=== PATIENT | male | born 1955 | race Caucasian/White ===

== ENCOUNTER 2021-09-02 14:33 | Inpatient (IN) ==
[2021-09-02] MEDS ORDERED: Naloxone 0.4 MG/ML INJ IVP PRN (18:12)
[2021-09-02] MEDS ORDERED: Ondansetron 4 MG/2 ML VIAL IVP PRN (18:12)
[2021-09-02] MEDS ORDERED: *HR* Dextrose 50 % in Water (Syg) 50 ML SYRINGE IVP PRN (18:14)
[2021-09-02] MEDS ORDERED: Dextrose Gel 15 GM/37.5 ML TUBE PO PRN ×2 (18:14)
[2021-09-02] MEDS ORDERED: D5% in Water 1,000 ML IVC SCH (18:15)
[2021-09-03] MEDS: Insulin LISPRO 300 UNITS/3 ML VIAL SUBQ SCH ×5 (00:38→23:58)
[2021-09-03] MEDS: *HR* Heparin 5,000 UNIT/ML VIAL SQ SCH ×2 (06:03→17:53)
[2021-09-03 08:02] LABS: Basophils % 0.2 %; Mean Corpuscular Volume 99.5 fL (83.0-100.0); Mean Platelet Volume 11.1 fL (9.4-12.4)
[2021-09-03 08:04] LABS: Eosinophils # 0.1 K/mcL (0.0-0.6); Hematocrit 37.9 % (37.5-50.1); Hemoglobin 12.3 g/dL (12.9-16.9); Immature Granulocytes % 0.2 % (0-4); Immature Platelets 4.7 % (1.1-6.1); Lymphocytes # 1.1 K/mcL (0.6-4.6); Lymphocytes % 19.2 %; Mean Corpuscular HGB Conc 32.5 g/dL (31.6-35.5); Mean Corpuscular Hemoglobin 32.3 pg (28.0-33.3); Monocytes # 0.4 K/mcL (0.0-1.3); Monocytes % 6.9 %; Neutrophils # 3.9 K/mcL (1.6-8.9); Red Blood Count 3.81 M/mcL (4.19-5.50); Segmented Neutrophils % 71.5 %; White Blood Count 5.5 K/mcL (4.3-11.1)
[2021-09-03 08:18] LABS: INR 1.4; Prothrombin Time 15.1 Seconds (9.4-12.1)
[2021-09-03 08:22] LABS: Alanine Aminotransferase 15 Units/L (7-52); Albumin 3.1 g/dL (3.5-5.7); Albumin/Globulin Ratio 1.6 (1.1-2.2); Alkaline Phosphatase 73 Units/L (34-104); Aspartate Amino Transferase 26 Units/L (13-39); BUN/Creatinine Ratio 16 (6-26); Bilirubin,Total 0.9 mg/dL (0.3-1.0); Blood Urea Nitrogen 15 mg/dL (8-23); Calcium 7.9 mg/dL (8.6-10.3); Carbon Dioxide 26 mEq/L (23-29); Chloride 112 mEq/L (98-107); Glucose 92 mg/dL (70-105); Magnesium 1.9 mg/dL (1.6-2.6); Osmolality,Calculated 298 (280-300); Phosphorous 3.3 mg/dL (2.7-4.5); Potassium 3.2 mEq/L (3.5-5.1); Sodium 144 mEq/L (136-145); Total Protein 5.1 g/dL (6.4-8.9); eGFR For African Americans > 60 (> 60); eGFR For Non-African Americans > 60 (> 60)
[2021-09-03 09:49] LABS: Platelet Count 99 K/mcL (140-400)
[2021-09-03] MEDS: Pantoprazole 40 MG VIAL IVP SCH (09:54)
[2021-09-03] MEDS ORDERED: Potassium Chloride 40 MEQ in D5% in 0.45% NACL 1,000 ML IVC SCH (11:15)
[2021-09-04] MEDS: *HR* Heparin 5,000 UNIT/ML VIAL SQ SCH ×2 (05:46→17:50)
[2021-09-04] MEDS: Insulin LISPRO 300 UNITS/3 ML VIAL SUBQ SCH ×3 (05:57→18:02)
[2021-09-04] MEDS: Pantoprazole 40 MG VIAL IVP SCH (07:29)
[2021-09-04 07:31] LABS: BUN/Creatinine Ratio 13 (6-26); Blood Urea Nitrogen 13 mg/dL (8-23); Calcium 8.3 mg/dL (8.6-10.3); Carbon Dioxide 26 mEq/L (23-29); Chloride 110 mEq/L (98-107); Glucose 89 mg/dL (70-105); Osmolality,Calculated 298 (280-300); Phosphorous 2.7 mg/dL (2.7-4.5); Potassium 3.8 mEq/L (3.5-5.1); Sodium 144 mEq/L (136-145); eGFR For African Americans > 60 (> 60); eGFR For Non-African Americans > 60 (> 60)
[2021-09-04] MEDS: D5% in Water 1,000 ML IVC PRN (17:57)
[2021-09-05] MEDS: Insulin LISPRO 300 UNITS/3 ML VIAL SUBQ SCH ×4 (00:38→18:43)
[2021-09-05] MEDS: D5% in Water 1,000 ML IVC PRN (03:44)
[2021-09-05] MEDS: *HR* Heparin 5,000 UNIT/ML VIAL SQ SCH ×2 (06:20→18:46)
[2021-09-05] MEDS ORDERED: D5% in 0.45% NACL 1,000 ML IVC SCH ×2 (07:45→16:40)
[2021-09-05] MEDS: Pantoprazole 40 MG VIAL IVP SCH (08:32)
[2021-09-05] MEDS ORDERED: *HR* Propofol 200 MG/20 ML VIAL IVP ONE (13:16)
[2021-09-05] MEDS ORDERED: Lidocaine -MPF 2% 5 ML VIAL ONE (13:18)
[2021-09-05] MEDS ORDERED: *HR* FentaNYL (PF) 100 MCG/2 ML VIAL ONE (13:18)
[2021-09-05] MEDS ORDERED: *HR* Heparin 5,000 UNIT/ML VIAL ONE (13:36)
[2021-09-05] MEDS ORDERED: Lidocaine 1% 20 ML MDV ONE (13:36)
[2021-09-05] MEDS ORDERED: *HR* Rocuronium Bromide 50 MG/5 ML VIAL ONE (14:26)
[2021-09-05] MEDS ORDERED: EPHEDrine 50 MG/ML VIAL ONE (14:41)
[2021-09-05] MEDS ORDERED: Sugammadex Sodium 200 MG/2 ML VIAL IV ONE (14:44)
[2021-09-05] MEDS ORDERED: Metoclopramide 10 MG/2 ML VIAL IVP PRN (15:30)
[2021-09-05] MEDS ORDERED: Promethazine 6.25 MG in Water for inj. (sterile) 20 ML IVPB PRN (15:30)
[2021-09-05] MEDS ORDERED: *HR* HYDROmorphone (PF) 1 MG/ML SYRINGE ONE (15:34)
[2021-09-05] MEDS: *HR* HYDROmorphone PF 0.5 MG/0.5 ML SYRINGE IVP PRN ×2 (15:35→15:45)
[2021-09-05] MEDS ORDERED: Ondansetron 4 MG/2 ML VIAL IVP PRN (16:40)
[2021-09-05] MEDS ORDERED: Naloxone 0.4 MG/ML INJ IVP PRN (16:40)
[2021-09-05] MEDS ORDERED: *HR* Dextrose 50 % in Water (Syg) 50 ML SYRINGE IVP PRN (16:40)
[2021-09-05] MEDS ORDERED: Dextrose Gel 15 GM/37.5 ML TUBE PO PRN ×2 (16:40)
[2021-09-05] MEDS: 0.9 % Sodium Chloride 1,000 ML IVC SCH (18:40)
[2021-09-05] MEDS: Morphine Sulfate 2 MG/ML SYRINGE IVP PRN (21:11)
[2021-09-06] MEDS: Insulin LISPRO 300 UNITS/3 ML VIAL SUBQ SCH ×4 (02:59→18:15)
[2021-09-06] MEDS ORDERED: Acetaminophen IV 500 MG/50 ML BAG IVPB ONE (05:00)
[2021-09-06] MEDS: 0.9 % Sodium Chloride 1,000 ML IVC SCH ×3 (05:12→18:31)
[2021-09-06] MEDS: *HR* Heparin 5,000 UNIT/ML VIAL SQ SCH ×2 (05:20→18:27)
[2021-09-06] MEDS: Morphine Sulfate 2 MG/ML SYRINGE IVP PRN (08:53)
[2021-09-06] MEDS: Pantoprazole 40 MG VIAL IVP SCH (08:55)
[2021-09-06] MEDS: Albumin Human 5% 12.5 GM/250 ML IV.SOLN IVC SCH ×2 (10:24→18:27)
[2021-09-06] MEDS ORDERED: *HR* FentaNYL (PF) 100 MCG/2 ML VIAL ONE (11:32)
[2021-09-06] MEDS ORDERED: Ondansetron 4 MG/2 ML VIAL IVP PRN (11:35)
[2021-09-06] MEDS ORDERED: *HR* Metoprolol 5 MG/5 ML VIAL IVP PRN (11:35)
[2021-09-06] MEDS ORDERED: Naloxone 0.4 MG/ML INJ IVP PRN (11:35)
[2021-09-06] MEDS ORDERED: *HR* FentaNYL (PF) 100 MCG/2 ML VIAL IVP PRN (11:35)
[2021-09-06] MEDS ORDERED: Nitroglycerin 0.4 MG TAB.SUBL SL PRN (11:35)
[2021-09-06] MEDS ORDERED: Albuterol 2.5 MG/3 ML NEBULIZER IH PRN (11:35)
[2021-09-06] MEDS ORDERED: Ondansetron 4 MG/2 ML VIAL ONE (12:14)
[2021-09-06] MEDS ORDERED: *HR* Propofol 200 MG/20 ML VIAL IVP ONE (12:14)
[2021-09-06] MEDS ORDERED: Acetaminophen IV 1,000 MG/100 ML BAG IVPB SCH (16:00)
[2021-09-06] MEDS ORDERED: Albumin Human 5% 12.5 GM/250 ML IV.SOLN IVC SCH ×2 (18:15→18:45)
[2021-09-07] MEDS: Insulin LISPRO 300 UNITS/3 ML VIAL SUBQ SCH ×4 (00:25→17:49)
[2021-09-07] MEDS: Morphine Sulfate 2 MG/ML SYRINGE IVP PRN ×2 (00:32→12:17)
[2021-09-07 01:01] LABS: Mean Corpuscular Volume 99.4 fL (83.0-100.0)
[2021-09-07 01:03] LABS: Hematocrit 33.5 % (37.5-50.1); Hemoglobin 10.7 g/dL (12.9-16.9); Immature Platelets 6.2 % (1.1-6.1); Mean Corpuscular HGB Conc 31.9 g/dL (31.6-35.5); Mean Corpuscular Hemoglobin 31.8 pg (28.0-33.3); Mean Platelet Volume 11.9 fL (9.4-12.4); Red Blood Count 3.37 M/mcL (4.19-5.50); Red Cell Distribution Width 13.1 % (11.5-14.5); White Blood Count 7.9 K/mcL (4.3-11.1)
[2021-09-07 01:21] LABS: BUN/Creatinine Ratio 19 (6-26); Blood Urea Nitrogen 14 mg/dL (8-23); Calcium 7.9 mg/dL (8.6-10.3); Carbon Dioxide 20 mEq/L (23-29); Chloride 111 mEq/L (98-107); Glucose 98 mg/dL (70-105); Magnesium 1.8 mg/dL (1.6-2.6); Osmolality,Calculated 290 (280-300); Potassium 3.9 mEq/L (3.5-5.1); Sodium 140 mEq/L (136-145); eGFR For African Americans > 60 (> 60); eGFR For Non-African Americans > 60 (> 60)
[2021-09-07] MEDS: 0.9 % Sodium Chloride 1,000 ML IVC SCH ×3 (02:21→18:20)
[2021-09-07] MEDS: *HR* Heparin 5,000 UNIT/ML VIAL SQ SCH ×2 (05:25→18:04)
[2021-09-07] MEDS: Pantoprazole 40 MG VIAL IVP SCH (09:53)
[2021-09-07] MEDS ORDERED: Chloraseptic Spray 177 ML BOTTLE MM PRN (11:41)
[2021-09-08] MEDS: Insulin LISPRO 300 UNITS/3 ML VIAL SUBQ SCH ×6 (01:03→21:23)
[2021-09-08] MEDS: 0.9 % Sodium Chloride 1,000 ML IVC SCH ×3 (02:35→19:23)
[2021-09-08] MEDS: *HR* Heparin 5,000 UNIT/ML VIAL SQ SCH ×2 (05:43→17:20)
[2021-09-08] MEDS: Morphine Sulfate 2 MG/ML SYRINGE IVP PRN ×3 (08:57→16:33)
[2021-09-08] MEDS: Pantoprazole 40 MG VIAL IVP SCH (08:57)
[2021-09-09] MEDS: Insulin LISPRO 300 UNITS/3 ML VIAL SUBQ SCH ×6 (00:20→21:34)
[2021-09-09] MEDS: 0.9 % Sodium Chloride 1,000 ML IVC SCH ×3 (03:37→18:15)
[2021-09-09] MEDS: *HR* Heparin 5,000 UNIT/ML VIAL SQ SCH ×2 (05:26→18:14)
[2021-09-10] MEDS: Insulin LISPRO 300 UNITS/3 ML VIAL SUBQ SCH ×6 (00:22→20:56)
[2021-09-10] MEDS: *HR* Heparin 5,000 UNIT/ML VIAL SQ SCH ×2 (06:39→17:11)
[2021-09-10] MEDS ORDERED: 0.9 % Sodium Chloride 1,000 ML IVC SCH (08:12)
[2021-09-10 12:11] LABS: Hematocrit 34.5 % (37.5-50.1); Hemoglobin 11.4 g/dL (12.9-16.9); Mean Corpuscular Hemoglobin 31.9 pg (28.0-33.3); Mean Corpuscular Volume 96.6 fL (83.0-100.0); Mean Platelet Volume 10.5 fL (9.4-12.4); Platelet Count 133 K/mcL (140-400); Red Blood Count 3.57 M/mcL (4.19-5.50); Red Cell Distribution Width 13.2 % (11.5-14.5); White Blood Count 4.7 K/mcL (4.3-11.1)
[2021-09-10 12:32] LABS: BUN/Creatinine Ratio 21 (6-26); Blood Urea Nitrogen 10 mg/dL (8-23); Calcium 7.7 mg/dL (8.6-10.3); Carbon Dioxide 25 mEq/L (23-29); Chloride 110 mEq/L (98-107); Glucose 127 mg/dL (70-105); Magnesium 1.6 mg/dL (1.6-2.6); Osmolality,Calculated 293 (280-300); Phosphorous 2.1 mg/dL (2.7-4.5); Potassium 3.3 mEq/L (3.5-5.1); Sodium 141 mEq/L (136-145); eGFR For African Americans > 60 (> 60); eGFR For Non-African Americans > 60 (> 60)
[2021-09-10] MEDS ORDERED: Potassium Effervescent 25 MEQ TABLET.EFF GTUBE ONE (18:40)
[2021-09-11] MEDS: Insulin LISPRO 300 UNITS/3 ML VIAL SUBQ SCH ×6 (00:04→18:06)
[2021-09-11 05:34] LABS: Hematocrit 35.2 % (37.5-50.1); Hemoglobin 11.8 g/dL (12.9-16.9); Mean Corpuscular HGB Conc 33.5 g/dL (31.6-35.5); Mean Corpuscular Hemoglobin 32.1 pg (28.0-33.3); Mean Corpuscular Volume 95.7 fL (83.0-100.0); Mean Platelet Volume 10.6 fL (9.4-12.4); Platelet Count 141 K/mcL (140-400); Red Blood Count 3.68 M/mcL (4.19-5.50); Red Cell Distribution Width 13.3 % (11.5-14.5); White Blood Count 5.8 K/mcL (4.3-11.1)
[2021-09-11] MEDS: *HR* Heparin 5,000 UNIT/ML VIAL SQ SCH ×2 (05:44→18:17)
[2021-09-11 05:49] LABS: BUN/Creatinine Ratio 18 (6-26); Blood Urea Nitrogen 10 mg/dL (8-23); Calcium 7.9 mg/dL (8.6-10.3); Carbon Dioxide 24 mEq/L (23-29); Chloride 109 mEq/L (98-107); Glucose 128 mg/dL (70-105); Magnesium 1.6 mg/dL (1.6-2.6); Osmolality,Calculated 291 (280-300); Potassium 3.8 mEq/L (3.5-5.1); Sodium 140 mEq/L (136-145); eGFR For African Americans > 60 (> 60); eGFR For Non-African Americans > 60 (> 60)
[2021-09-12] MEDS: Insulin LISPRO 300 UNITS/3 ML VIAL SUBQ SCH ×4 (01:03→11:34)
[2021-09-12] MEDS: *HR* Heparin 5,000 UNIT/ML VIAL SQ SCH (05:37)
[2021-09-12 06:32] VITALS: TEMP 98
[2021-09-12 11:18] VITALS: BP 119/76; PULSE 102; O2SAT 93
== END 2021-09-12 15:15 | disposition home health service (06) | DRG 356 ==
LOC: 3NENU → SUATTDRO 17:15
PROVIDERS: ADMIT Internal Medicine; ATTEND Internal Medicine
PROC: ENDOEBX (2021-09-06 09:10)
PROC: ENDOEUS (2021-09-06 09:10)

== ENCOUNTER 2021-11-08 08:58 | Observation (INO) ==
[2021-11-08] MEDS ORDERED: Cefepime HCl 2,000 MG in 0.9 % Sodium Chloride 10 ML IVP ONE (09:22)
[2021-11-08] MEDS ORDERED: 0.9 % Sodium Chloride 1,000 ML IVC SCH (09:30)
[2021-11-08 09:43] LABS: Mean Corpuscular Hemoglobin 31.1 pg (28.0-33.3)
[2021-11-08 09:45] LABS: Immature Platelets 3.6 % (1.1-6.1); Mean Corpuscular HGB Conc 33.3 g/dL (31.6-35.5); Mean Corpuscular Volume 93.2 fL (83.0-100.0); Mean Platelet Volume 9.8 fL (9.4-12.4); Red Blood Count 3.22 M/mcL (4.19-5.50); Red Cell Distribution Width 14.8 % (11.5-14.5); White Blood Count 2.5 K/mcL (4.3-11.1)
[2021-11-08 09:49] LABS: Platelet Count 84 K/mcL (140-400)
[2021-11-08 09:54] LABS: Alanine Aminotransferase 37 Units/L (7-52); Albumin 3.4 g/dL (3.5-5.7); Albumin/Globulin Ratio 1.2 (1.1-2.2); Alkaline Phosphatase 171 Units/L (34-104); Aspartate Amino Transferase 16 Units/L (13-39); BUN/Creatinine Ratio 23 (6-26); Bilirubin,Direct 0.4 mg/dL (0.0-0.2); Bilirubin,Indirect 0.7 mg/dL (0.0-1.0); Bilirubin,Total 1.1 mg/dL (0.3-1.0); Blood Urea Nitrogen 17 mg/dL (8-23); Calcium 8.5 mg/dL (8.6-10.3); Carbon Dioxide 23 mEq/L (23-29); Chloride 93 mEq/L (98-107); Globulin 2.8 g/dL (2.4-3.5); Glucose 153 mg/dL (70-105); Lipase 3 Units/L (11-82); Magnesium 1.6 mg/dL (1.6-2.6); Osmolality,Calculated 269 (280-300); Potassium 4.2 mEq/L (3.5-5.1); Sodium 127 mEq/L (136-145); Total Protein 6.2 g/dL (6.4-8.9); Troponin I < 0.03 ng/mL (< 0.04); eGFR For African Americans > 60 (> 60); eGFR For Non-African Americans > 60 (> 60)
[2021-11-08 09:54] LABS: VBG HCO3 24 mEq/L (21-27); VBG PCO2 36 mmHg (41-51); VBG PH 7.44 pH Units (7.32-7.42); VBG PO2 44 mmHg (25-50)
[2021-11-08 09:56] LABS: INR 1.4
[2021-11-08 09:59] LABS: Activated Partial Thrombo Time 33.5 Seconds (26.0-36.0)
[2021-11-08 10:04] LABS: Anisocytosis 1+ (Not Present); Lymphocytes # 0.2 K/mcL (0.6-4.6); Monocytes # 0.5 K/mcL (0.0-1.3); Neutrophils # 1.9 K/mcL (1.6-8.9); Platelet Estimate Decreased (Normal)
[2021-11-08 11:09] LABS: Influenza A PCR Negative (Negative); Influenza B PCR Negative (Negative); Resp. Syncytial Virus PCR Negative (Negative)
[2021-11-08 11:26] LABS: SARS-CoV-2 by PCR (In House) Negative (Negative)
[2021-11-08] MEDS ORDERED: Isovue-370 500 ML BOTTLE IVP ONE (11:42)
[2021-11-08 11:47] LABS: Bacteria,Urine Few per hpf (None-Few); Bilirubin,Urine Negative (Negative); Blood,Urine Negative (Negative); Calcium Oxalate Crystals,Urine Present per hpf; Clarity,Urine Clear (Clear); Color,Urine Yellow (Yellow); Glucose,Urine (UA) Normal (Normal); Hyaline Casts,Urine Few per lpf (None Seen); Ketones,Urine Negative (Negative); Leukocyte Esterase,Urine Negative (Negative); Mucus,Urine Few per lpf (None-Few); Nitrite,Urine Negative (Negative); PH,Urine 5.5 pH Units (5.0-8.0); Protein,Urine 30 mg/dL (Neg-Trace); Specific Gravity,Urine 1.021 (1.010-1.025); Squamous Epithelial Cell,Urine Few per hpf (None-Few); Urobilinogen,Urine Normal (Normal); WBC,Urine 0-3 per hpf (0-3)
[2021-11-08] MEDS ORDERED: Ondansetron 4 MG/2 ML VIAL IVP PRN (12:22)
[2021-11-08] MEDS ORDERED: Naloxone 0.4 MG/ML INJ IVP PRN (12:22)
[2021-11-08] MEDS: 0.9 % Sodium Chloride 1,000 ML IVC SCH ×2 (14:35→21:00)
[2021-11-08] MEDS: *HR* Heparin 5,000 UNIT/ML VIAL SQ SCH (17:28)
[2021-11-08] MEDS: Piperacillin/Tazobactam 3.375 GM in 0.9 % Sodium Chloride Mini Bag 100 ML IVPB SCH ×2 (17:28→23:29)
[2021-11-08] MEDS ORDERED: *HR* HYDROmorphone (PF) 1 MG/ML SYRINGE IVP ONE (19:56)
[2021-11-08] MEDS: Famotidine 20 MG TABLET GTUBE SCH (20:47)
[2021-11-09] MEDS ORDERED: Dextrose 4 GM Chewable Tablets PO PRN ×2 (00:45)
[2021-11-09] MEDS ORDERED: D5% in Water 1,000 ML IVC PRN (00:45)
[2021-11-09] MEDS: *HR* Dextrose 50 % in Water (Syg) 50 ML SYRINGE IVP PRN ×2 (00:58→05:02)
[2021-11-09] MEDS ORDERED: *HR* HYDROmorphone (PF) 1 MG/ML SYRINGE IVP ONE (02:07)
[2021-11-09 03:19] LABS: Basophils % 0.7 %; Mean Corpuscular Hemoglobin 31.7 pg (28.0-33.3); Red Cell Distribution Width 15.1 % (11.5-14.5)
[2021-11-09 03:21] LABS: Eosinophils % 0.7 %; Hematocrit 23.6 % (37.5-50.1); Hemoglobin 7.7 g/dL (12.9-16.9); Immature Granulocytes % 1.4 % (0-4); Immature Platelets 3.3 % (1.1-6.1); Lymphocytes # 0.1 K/mcL (0.6-4.6); Lymphocytes % 4.8 %; Mean Corpuscular HGB Conc 32.6 g/dL (31.6-35.5); Mean Corpuscular Volume 97.1 fL (83.0-100.0); Mean Platelet Volume 10.2 fL (9.4-12.4); Monocytes # 0.4 K/mcL (0.0-1.3); Monocytes % 24.1 %; Red Blood Count 2.43 M/mcL (4.19-5.50); Segmented Neutrophils % 68.3 %; White Blood Count 1.5 K/mcL (4.3-11.1)
[2021-11-09] MEDS: 0.9 % Sodium Chloride 1,000 ML IVC SCH ×3 (03:26→21:30)
[2021-11-09 03:29] LABS: Platelet Count 72 K/mcL (140-400)
[2021-11-09 04:44] LABS: BUN/Creatinine Ratio 26 (6-26); Blood Urea Nitrogen 15 mg/dL (8-23); Calcium 7.9 mg/dL (8.6-10.3); Carbon Dioxide 23 mEq/L (23-29); Chloride 105 mEq/L (98-107); Glucose 97 mg/dL (70-105); Osmolality,Calculated 281 (280-300); Potassium 3.9 mEq/L (3.5-5.1); Sodium 135 mEq/L (136-145); eGFR For African Americans > 60 (> 60); eGFR For Non-African Americans > 60 (> 60)
[2021-11-09] MEDS: *HR* Heparin 5,000 UNIT/ML VIAL SQ SCH ×2 (05:24→17:07)
[2021-11-09] MEDS: Piperacillin/Tazobactam 3.375 GM in 0.9 % Sodium Chloride Mini Bag 100 ML IVPB SCH ×3 (07:53→23:18)
[2021-11-09] MEDS: Famotidine 20 MG TABLET GTUBE SCH ×2 (07:54→21:30)
[2021-11-09] MEDS: Morphine Sulfate 2 MG/ML SYRINGE IVP PRN ×2 (11:20→18:25)
[2021-11-09] MEDS ORDERED: Scopolamine Patch 1.5 MG PATCH.TD72 TD SCH (13:15)
[2021-11-10] MEDS: Morphine Sulfate 2 MG/ML SYRINGE IVP PRN ×4 (00:46→20:49)
[2021-11-10 01:45] LABS: Eosinophils % 0.7 %; Hematocrit 24.1 % (37.5-50.1); Hemoglobin 7.6 g/dL (12.9-16.9); Immature Granulocytes % 0.7 % (0-4); Immature Platelets 2.9 % (1.1-6.1); Lymphocytes # 0.1 K/mcL (0.6-4.6); Lymphocytes % 5.1 %; Mean Corpuscular HGB Conc 31.5 g/dL (31.6-35.5); Mean Corpuscular Hemoglobin 30.8 pg (28.0-33.3); Mean Corpuscular Volume 97.6 fL (83.0-100.0); Mean Platelet Volume 10.2 fL (9.4-12.4); Monocytes % 17.6 %; Red Blood Count 2.47 M/mcL (4.19-5.50); Red Cell Distribution Width 15.2 % (11.5-14.5); Segmented Neutrophils % 75.9 %; White Blood Count 1.4 K/mcL (4.3-11.1)
[2021-11-10 01:48] LABS: Monocytes # 0.3 K/mcL (0.0-1.3); Neutrophils # 1.1 K/mcL (1.6-8.9); Platelet Count 75 K/mcL (140-400)
[2021-11-10 02:04] LABS: BUN/Creatinine Ratio 28 (6-26); Blood Urea Nitrogen 15 mg/dL (8-23); Calcium 7.4 mg/dL (8.6-10.3); Carbon Dioxide 21 mEq/L (23-29); Chloride 109 mEq/L (98-107); Glucose 136 mg/dL (70-105); Osmolality,Calculated 289 (280-300); Potassium 3.6 mEq/L (3.5-5.1); Sodium 138 mEq/L (136-145); eGFR For African Americans > 60 (> 60); eGFR For Non-African Americans > 60 (> 60)
[2021-11-10] MEDS: 0.9 % Sodium Chloride 1,000 ML IVC SCH ×3 (03:32→20:51)
[2021-11-10] MEDS: *HR* Heparin 5,000 UNIT/ML VIAL SQ SCH ×2 (06:05→18:11)
[2021-11-10] MEDS: Piperacillin/Tazobactam 3.375 GM in 0.9 % Sodium Chloride Mini Bag 100 ML IVPB SCH ×2 (07:41→15:53)
[2021-11-10] MEDS: Famotidine 20 MG TABLET GTUBE SCH ×2 (09:58→20:50)
[2021-11-10 14:44] LABS: % Iron Saturation 29 % (20-55); Iron 47 mcg/dL (65-175); Transferrin 115 mg/dL (203-362)
[2021-11-10 15:02] LABS: Ferritin 585 ng/mL (20-250)
[2021-11-11] MEDS: Piperacillin/Tazobactam 3.375 GM in 0.9 % Sodium Chloride Mini Bag 100 ML IVPB SCH ×2 (00:27→07:55)
[2021-11-11] MEDS: 0.9 % Sodium Chloride 1,000 ML IVC SCH (05:15)
[2021-11-11] MEDS: *HR* Heparin 5,000 UNIT/ML VIAL SQ SCH (05:16)
[2021-11-11 05:45] LABS: Basophils % 0.6 %; Eosinophils % 0.6 %; Hematocrit 26.1 % (37.5-50.1); Hemoglobin 8.4 g/dL (12.9-16.9); Immature Granulocytes % 0.6 % (0-4); Immature Platelets 2.2 % (1.1-6.1); Lymphocytes # 0.1 K/mcL (0.6-4.6); Lymphocytes % 5.9 %; Mean Corpuscular HGB Conc 32.2 g/dL (31.6-35.5); Mean Corpuscular Hemoglobin 30.8 pg (28.0-33.3); Mean Corpuscular Volume 95.6 fL (83.0-100.0); Mean Platelet Volume 10.4 fL (9.4-12.4); Monocytes # 0.3 K/mcL (0.0-1.3); Monocytes % 14.7 %; Neutrophils # 1.3 K/mcL (1.6-8.9); Red Blood Count 2.73 M/mcL (4.19-5.50); Red Cell Distribution Width 15.4 % (11.5-14.5); Segmented Neutrophils % 77.6 %; White Blood Count 1.7 K/mcL (4.3-11.1)
[2021-11-11 05:46] LABS: Platelet Count 89 K/mcL (140-400)
[2021-11-11 06:30] LABS: BUN/Creatinine Ratio 21 (6-26); Blood Urea Nitrogen 11 mg/dL (8-23); Calcium 7.4 mg/dL (8.6-10.3); Carbon Dioxide 20 mEq/L (23-29); Chloride 106 mEq/L (98-107); Glucose 153 mg/dL (70-105); Osmolality,Calculated 284 (280-300); Potassium 3.7 mEq/L (3.5-5.1); Sodium 136 mEq/L (136-145); eGFR For African Americans > 60 (> 60); eGFR For Non-African Americans > 60 (> 60)
[2021-11-11] MEDS: Morphine Sulfate 2 MG/ML SYRINGE IVP PRN (07:54)
[2021-11-11] MEDS: Famotidine 20 MG TABLET GTUBE SCH (08:02)
[2021-11-11] MEDS ORDERED: Iron Sucrose Complex 400 MG in 0.9 % Sodium Chloride 250 ML IVPB ONE (10:00)
[2021-11-11] MEDS ORDERED: *HR* OxyCODONE Oral Soln 5 MG/5 ML UD.LIQ GTUBE PRN (10:17)
[2021-11-11 11:55] VITALS: BP 123/82; PULSE 94; TEMP 97.5; O2SAT 96
== END 2021-11-11 14:53 | disposition home health service (06) ==
LOC: EMEROOARM 08:58 → 3ANU 08:58
PROVIDERS: ADMIT Internal Medicine; ATTEND Internal Medicine

== ENCOUNTER 2022-01-02 06:05 | Inpatient (IN) ==
[~2022-01-02 06:05] MED LIST: Famotidine 20 MG/2 ML VIAL IVP ONE; Ringers Solution, Lactated 1,000 ML IVC ONE
[2022-01-02] MEDS ORDERED: CeFAZolin Syr 2,000MG/20 ML 2,000 MG/20 ML SYRINGE IVPB ONE (06:29)
[2022-01-02] MEDS ORDERED: *HR* Propofol 200 MG/20 ML VIAL IVP ONE ×2 (06:54→10:53)
[2022-01-02] MEDS ORDERED: Lidocaine HCL 4 ML Topical Solution (Laryng-O-Jet Kit Sterile Pak) TP ONE (06:54)
[2022-01-02] MEDS ORDERED: Lidocaine -MPF 2% 2 ML VIAL ONE (06:54)
[2022-01-02] MEDS ORDERED: Ondansetron 4 MG/2 ML VIAL ONE (06:54)
[2022-01-02] MEDS ORDERED: *HR* Succinylcholine 200 MG/10 ML VIAL IVP ONE (06:58)
[2022-01-02] MEDS ORDERED: Scopolamine Patch 1.5 MG PATCH.TD72 TD ONE (07:06)
[2022-01-02] MEDS ORDERED: Naloxone 0.4 MG/ML INJ IVP PRN ×2 (07:25→13:30)
[2022-01-02] MEDS ORDERED: Nitroglycerin 0.4 MG TAB.SUBL SL PRN (07:25)
[2022-01-02] MEDS ORDERED: Albuterol 2.5 MG/3 ML NEBULIZER IH PRN (07:25)
[2022-01-02] MEDS ORDERED: *HR* HYDROmorphone PF 0.5 MG/0.5 ML SYRINGE IVP PRN (07:25)
[2022-01-02] MEDS ORDERED: Ondansetron 4 MG/2 ML VIAL IVP PRN ×2 (07:25→13:30)
[2022-01-02] MEDS ORDERED: *HR* Phenylephrine 10 MG/ML VIAL ONE (07:26)
[2022-01-02] MEDS ORDERED: *HR* Rocuronium Bromide 50 MG/5 ML VIAL ONE (07:37)
[2022-01-02] MEDS ORDERED: *HR* FentaNYL (PF) 100 MCG/2 ML VIAL ONE (07:38)
[2022-01-02] MEDS ORDERED: Heparin 1,000 UNITS/500 mL 500 ML ONE (07:39)
[2022-01-02 08:45] LABS: ABG Base Excess -1 mEq/L (-2 to 3); ABG Chloride 102 mEq/L (98-107); ABG Glucose 105 mg/dL (60-95); ABG HCO3 23 mEq/L (21-27); ABG Oxygen Saturation 100 % (95-98); ABG PCO2 37 mmHg (35-45); ABG PH 7.41 pH Units (7.32-7.45); ABG PO2 529 mmHg (85-104); ABG TCO2 24 mEq/L (20-26)
[2022-01-02] MEDS ORDERED: Ketamine HCL *QUVA* 50mg (1mL) SYRINGE ONE (08:58)
[2022-01-02] MEDS ORDERED: PHYTONADIONE IVPB ONE (10:15)
[2022-01-02] MEDS ORDERED: SODIUM CHLORIDE 0.9% IVPB ONE (10:15)
[2022-01-02] MEDS ORDERED: *HR* HYDROMORPHONE 2 MG/ML VIAL ONE (10:28)
[2022-01-02] MEDS ORDERED: Albumin Human 5% 25.0 GM/500 ML IV.SOLN ONE (10:56)
[2022-01-02 10:59] LABS: ABG Base Excess -3 mEq/L (-2 to 3); ABG Chloride 103 mEq/L (98-107); ABG Glucose 154 mg/dL (60-95); ABG HCO3 22 mEq/L (21-27); ABG Ionized Calcium 1.15 mmol/L (1.15-1.35); ABG Oxygen Saturation 96 % (95-98); ABG PCO2 37 mmHg (35-45); ABG PH 7.38 pH Units (7.32-7.45); ABG PO2 80 mmHg (85-104); ABG TCO2 23 mEq/L (20-26)
[2022-01-02] MEDS ORDERED: Albumin Human 5% 12.5 GM/250 ML IV.SOLN ONE (12:10)
[2022-01-02] MEDS ORDERED: Sugammadex Sodium 200 MG/2 ML VIAL IV ONE (12:27)
[2022-01-02 12:39] LABS: ABG Base Excess -2 mEq/L (-2 to 3); ABG Chloride 103 mEq/L (98-107); ABG Glucose 187 mg/dL (60-95); ABG HCO3 23 mEq/L (21-27); ABG Ionized Calcium 1.16 mmol/L (1.15-1.35); ABG Oxygen Saturation 97 % (95-98); ABG PCO2 38 mmHg (35-45); ABG PH 7.38 pH Units (7.32-7.45); ABG PO2 96 mmHg (85-104); ABG TCO2 24 mEq/L (20-26)
[2022-01-02] MEDS ORDERED: *HR* Vasopressin 20 UNIT/ML VIAL ONE (12:43)
[2022-01-02] MEDS ORDERED: EPHEDrine 50 MG/ML VIAL ONE (12:57)
[2022-01-02] MEDS: 0.9 % Sodium Chloride 1,000 ML IVC SCH ×2 (13:51→20:21)
[2022-01-02] MEDS: Scopolamine Patch 1.5 MG PATCH.TD72 TD SCH (13:53)
[2022-01-02 14:01] LABS: Hematocrit 27.4 % (37.5-50.1); Immature Platelets 3.2 % (1.1-6.1); Mean Corpuscular HGB Conc 32.8 g/dL (31.6-35.5); Mean Corpuscular Hemoglobin 34.4 pg (28.0-33.3); Mean Corpuscular Volume 104.6 fL (83.0-100.0); Red Blood Count 2.62 M/mcL (4.19-5.50)
[2022-01-02] MEDS: *HR* HYDROmorphone PCA *PREMADE* 20 MG/1MG/ML (20mL) PCA VIAL IVC SCH (14:19)
[2022-01-02 14:38] LABS: BUN/Creatinine Ratio 33 (6-26); Blood Urea Nitrogen 21 mg/dL (8-23); Calcium 7.8 mg/dL (8.6-10.3); Carbon Dioxide 18 mEq/L (23-29); Chloride 104 mEq/L (98-107); Glucose 158 mg/dL (70-105); Magnesium 1.5 mg/dL (1.6-2.6); Osmolality,Calculated 286 (280-300); Phosphorous 3.6 mg/dL (2.7-4.5); Potassium 4.1 mEq/L (3.5-5.1); Sodium 135 mEq/L (136-145); eGFR For African Americans > 60 (> 60); eGFR For Non-African Americans > 60 (> 60)
[2022-01-02] MEDS: Albumin Human 5% 12.5 GM/250 ML IV.SOLN IVC SCH ×2 (17:02→21:00)
[2022-01-02] MEDS: ceFAZolin 1,000 MG in 0.9 % Sodium Chloride 10 ML IVP SCH (17:03)
[2022-01-02] MEDS: Ipratropium/Albuterol Neb 3 ML IH SCH ×2 (20:05→23:52)
[2022-01-02 20:23] LABS: Hematocrit 30.5 % (37.5-50.1); Mean Corpuscular HGB Conc 32.8 g/dL (31.6-35.5); Mean Corpuscular Volume 103.7 fL (83.0-100.0); Red Blood Count 2.94 M/mcL (4.19-5.50)
[2022-01-02 20:25] LABS: Immature Platelets 2.8 % (1.1-6.1); Mean Platelet Volume 9.9 fL (9.4-12.4); Red Cell Distribution Width 18.9 % (11.5-14.5); White Blood Count 6.6 K/mcL (4.3-11.1)
[2022-01-03] MEDS: ceFAZolin 1,000 MG in 0.9 % Sodium Chloride 10 ML IVP SCH ×3 (00:05→15:45)
[2022-01-03 03:21] LABS: Hematocrit 30.6 % (37.5-50.1); Hemoglobin 9.8 g/dL (12.9-16.9); Immature Platelets 2.9 % (1.1-6.1); Mean Corpuscular Hemoglobin 34.4 pg (28.0-33.3); Mean Corpuscular Volume 107.4 fL (83.0-100.0); Mean Platelet Volume 9.6 fL (9.4-12.4); Red Blood Count 2.85 M/mcL (4.19-5.50); Red Cell Distribution Width 18.9 % (11.5-14.5); White Blood Count 8.5 K/mcL (4.3-11.1)
[2022-01-03 03:26] LABS: VBG Ionized Calcium 1.12 mmol/L (1.15-1.35)
[2022-01-03 03:41] LABS: BUN/Creatinine Ratio 31 (6-26); Blood Urea Nitrogen 22 mg/dL (8-23); Calcium 8.5 mg/dL (8.6-10.3); Carbon Dioxide 19 mEq/L (23-29); Chloride 104 mEq/L (98-107); Glucose 194 mg/dL (70-105); Magnesium 2.2 mg/dL (1.6-2.6); Osmolality,Calculated 293 (280-300); Phosphorous 3.3 mg/dL (2.7-4.5); Potassium 3.8 mEq/L (3.5-5.1); Sodium 137 mEq/L (136-145); eGFR For African Americans > 60 (> 60); eGFR For Non-African Americans > 60 (> 60)
[2022-01-03] MEDS: 0.9 % Sodium Chloride 1,000 ML IVC SCH ×3 (03:49→19:35)
[2022-01-03] MEDS: Ipratropium/Albuterol Neb 3 ML IH SCH ×6 (03:49→23:22)
[2022-01-03] MEDS ORDERED: Ipratropium/Albuterol Neb 3 ML ONE (07:58)
[2022-01-03] MEDS: Pantoprazole 40 MG VIAL IVP SCH (08:14)
[2022-01-03] MEDS: *HR* HYDROmorphone (PF) 1 MG/ML SYRINGE IVP PRN ×2 (09:43→17:36)
[2022-01-03] MEDS ORDERED: Ringers Solution, Lactated 500 ML IVC ONE (13:36)
[2022-01-04 04:05] LABS: Hematocrit 26.6 % (37.5-50.1); Hemoglobin 8.4 g/dL (12.9-16.9); Immature Platelets 2.4 % (1.1-6.1); Mean Corpuscular HGB Conc 31.6 g/dL (31.6-35.5); Mean Corpuscular Volume 107.7 fL (83.0-100.0); Mean Platelet Volume 9.7 fL (9.4-12.4); Red Blood Count 2.47 M/mcL (4.19-5.50); Red Cell Distribution Width 19.5 % (11.5-14.5); White Blood Count 6.8 K/mcL (4.3-11.1)
[2022-01-04] MEDS: Ipratropium/Albuterol Neb 3 ML IH SCH ×2 (04:15→07:35)
[2022-01-04 04:23] LABS: BUN/Creatinine Ratio 46 (6-26); Blood Urea Nitrogen 26 mg/dL (8-23); Calcium 8.1 mg/dL (8.6-10.3); Carbon Dioxide 25 mEq/L (23-29); Chloride 109 mEq/L (98-107); Glucose 139 mg/dL (70-105); Magnesium 1.8 mg/dL (1.6-2.6); Osmolality,Calculated 295 (280-300); Phosphorous 1.8 mg/dL (2.7-4.5); Sodium 139 mEq/L (136-145); eGFR For African Americans > 60 (> 60); eGFR For Non-African Americans > 60 (> 60)
[2022-01-04] MEDS: 0.9 % Sodium Chloride 1,000 ML IVC SCH ×3 (04:32→21:19)
[2022-01-04] MEDS: Pantoprazole 40 MG VIAL IVP SCH (07:50)
[2022-01-04] MEDS: *HR* HYDROmorphone (PF) 1 MG/ML SYRINGE IVP PRN (10:19)
[2022-01-04] MEDS ORDERED: *HR* LORazepam 2 MG/ML VIAL IVP PRN (11:03)
[2022-01-04] MEDS: Levalbuterol Neb 1.25 MG/3 ML IH SCH ×3 (11:06→20:47)
[2022-01-04 19:25] LABS: Magnesium 2.9 mg/dL (1.6-2.6); Potassium 3.8 mEq/L (3.5-5.1)
[2022-01-05 03:56] LABS: Hematocrit 24.8 % (37.5-50.1)
[2022-01-05 03:58] LABS: Hemoglobin 7.8 g/dL (12.9-16.9); Immature Platelets 2.3 % (1.1-6.1); Mean Corpuscular HGB Conc 31.5 g/dL (31.6-35.5); Mean Corpuscular Hemoglobin 33.9 pg (28.0-33.3); Mean Corpuscular Volume 107.8 fL (83.0-100.0); Red Blood Count 2.3 M/mcL (4.19-5.50); Red Cell Distribution Width 18.7 % (11.5-14.5); White Blood Count 3.8 K/mcL (4.3-11.1)
[2022-01-05 04:15] LABS: BUN/Creatinine Ratio 51 (6-26); Blood Urea Nitrogen 20 mg/dL (8-23); Calcium 7.8 mg/dL (8.6-10.3); Carbon Dioxide 23 mEq/L (23-29); Chloride 109 mEq/L (98-107); Glucose 82 mg/dL (70-105); Osmolality,Calculated 290 (280-300); Potassium 3.7 mEq/L (3.5-5.1); Sodium 139 mEq/L (136-145); eGFR For African Americans > 60 (> 60); eGFR For Non-African Americans > 60 (> 60)
[2022-01-05] MEDS: Levalbuterol Neb 1.25 MG/3 ML IH SCH ×7 (04:40→23:24)
[2022-01-05] MEDS: 0.9 % Sodium Chloride 1,000 ML IVC SCH ×2 (05:48→20:20)
[2022-01-05] MEDS: Pantoprazole 40 MG VIAL IVP SCH (08:25)
[2022-01-05] MEDS ORDERED: Calcium Gluconate 1gm/50mL 1 GM/50 ML BAG IVPB ONE (08:38)
[2022-01-05] MEDS ORDERED: Furosemide 20 MG/2 ML VIAL IVP ONE (12:53)
[2022-01-05] MEDS: Ampicillin/Sulbactam 3,000 MG in 0.9 % Sodium Chloride Mini Bag 100 ML IVPB SCH ×2 (12:56→16:24)
[2022-01-05] MEDS ORDERED: *HR* Dextrose 50 % in Water (Syg) 50 ML SYRINGE IVP ONE (13:07)
[2022-01-05] MEDS: *HR* HYDROmorphone PCA *PREMADE* 20 MG/1MG/ML (20mL) PCA VIAL IVC SCH (13:41)
[2022-01-05] MEDS: Scopolamine Patch 1.5 MG PATCH.TD72 TD SCH (13:46)
[2022-01-05] MEDS ORDERED: *HR* Dextrose 50 % in Water (Syg) 50 ML SYRINGE IVP PRN (13:51)
[2022-01-05] MEDS ORDERED: Amiodarone Premix 150 MG/100 ML BAG IVPB ONE ×2 (20:53→20:57)
[2022-01-05] MEDS ORDERED: Amiodarone Premix 360 MG/200 ML BAG IVC ONE (20:57)
[2022-01-06] MEDS: Ampicillin/Sulbactam 3,000 MG in 0.9 % Sodium Chloride Mini Bag 100 ML IVPB SCH ×4 (00:11→17:38)
[2022-01-06] MEDS: Amiodarone Premix 360 MG/200 ML BAG IVC SCH ×2 (02:50→15:05)
[2022-01-06] MEDS: Levalbuterol Neb 1.25 MG/3 ML IH SCH ×6 (03:29→23:19)
[2022-01-06 04:11] LABS: White Blood Count 3.6 K/mcL (4.3-11.1)
[2022-01-06 04:13] LABS: Hematocrit 23.7 % (37.5-50.1); Hemoglobin 7.6 g/dL (12.9-16.9); Immature Platelets 2.5 % (1.1-6.1); Mean Corpuscular HGB Conc 32.1 g/dL (31.6-35.5); Mean Corpuscular Hemoglobin 34.4 pg (28.0-33.3); Mean Corpuscular Volume 107.2 fL (83.0-100.0); Mean Platelet Volume 10.3 fL (9.4-12.4); Red Blood Count 2.21 M/mcL (4.19-5.50); Red Cell Distribution Width 18.6 % (11.5-14.5)
[2022-01-06 04:28] LABS: BUN/Creatinine Ratio 40 (6-26); Blood Urea Nitrogen 21 mg/dL (8-23); Calcium 7.8 mg/dL (8.6-10.3); Carbon Dioxide 23 mEq/L (23-29); Chloride 107 mEq/L (98-107); Glucose 159 mg/dL (70-105); Magnesium 1.8 mg/dL (1.6-2.6); Osmolality,Calculated 292 (280-300); Phosphorous 2.7 mg/dL (2.7-4.5); Potassium 3.7 mEq/L (3.5-5.1); Sodium 138 mEq/L (136-145); eGFR For African Americans > 60 (> 60); eGFR For Non-African Americans > 60 (> 60)
[2022-01-06] MEDS ORDERED: Furosemide 20 MG/2 ML VIAL IVP ONE (07:44)
[2022-01-06] MEDS: Pantoprazole 40 MG VIAL IVP SCH (08:47)
[2022-01-06] MEDS: Doxycycline 100 MG in 0.9 % Sodium Chloride Mini Bag 100 ML IVPB SCH ×2 (10:44→22:14)
[2022-01-06] MEDS: Acetylcysteine 10% 2 ML INHSOL IH SCH ×4 (11:46→23:20)
[2022-01-06] MEDS: Dexmedetomidine HCl 400 MCG/100 ML MLS IVC SCH (12:07)
[2022-01-06] MEDS ORDERED: *HR* Succinylcholine 200 MG/10 ML VIAL IVP ONE (12:08)
[2022-01-06] MEDS ORDERED: *HR* Etomidate 20 MG/10 ML AMPUL IVP ONE (12:08)
[2022-01-06] MEDS ORDERED: Albumin Human 5% 12.5 GM/250 ML IV.SOLN IVPB ONE (15:52)
[2022-01-06] MEDS: 0.9 % Sodium Chloride 1,000 ML IVC SCH (16:23)
[2022-01-07] MEDS: Ampicillin/Sulbactam 3,000 MG in 0.9 % Sodium Chloride Mini Bag 100 ML IVPB SCH ×4 (00:25→21:46)
[2022-01-07] MEDS: Amiodarone Premix 360 MG/200 ML BAG IVC SCH ×2 (00:50→16:37)
[2022-01-07] MEDS: Dexmedetomidine HCl 400 MCG/100 ML MLS IVC SCH ×3 (04:34→22:21)
[2022-01-07] MEDS: Acetylcysteine 10% 2 ML INHSOL IH SCH ×4 (04:40→15:55)
[2022-01-07] MEDS: Levalbuterol Neb 1.25 MG/3 ML IH SCH ×5 (04:40→20:24)
[2022-01-07 06:03] LABS: Hematocrit 23.2 % (37.5-50.1); Hemoglobin 7.4 g/dL (12.9-16.9); Immature Platelets 3.5 % (1.1-6.1); Mean Corpuscular HGB Conc 31.9 g/dL (31.6-35.5); Mean Corpuscular Hemoglobin 34.1 pg (28.0-33.3); Mean Corpuscular Volume 106.9 fL (83.0-100.0); Mean Platelet Volume 10.8 fL (9.4-12.4); Red Blood Count 2.17 M/mcL (4.19-5.50); Red Cell Distribution Width 18.9 % (11.5-14.5); White Blood Count 2.8 K/mcL (4.3-11.1)
[2022-01-07 06:33] LABS: BUN/Creatinine Ratio 38 (6-26); Blood Urea Nitrogen 21 mg/dL (8-23); Carbon Dioxide 27 mEq/L (23-29); Chloride 110 mEq/L (98-107); Glucose 151 mg/dL (70-105); Magnesium 1.8 mg/dL (1.6-2.6); Osmolality,Calculated 300 (280-300); Phosphorous 2.2 mg/dL (2.7-4.5); Potassium 3.7 mEq/L (3.5-5.1); Sodium 142 mEq/L (136-145); eGFR For African Americans > 60 (> 60); eGFR For Non-African Americans > 60 (> 60)
[2022-01-07] MEDS: Pantoprazole 40 MG VIAL IVP SCH (08:38)
[2022-01-07] MEDS: Doxycycline 100 MG in 0.9 % Sodium Chloride Mini Bag 100 ML IVPB SCH ×2 (08:39→22:24)
[2022-01-07] MEDS ORDERED: Furosemide 40 MG/4 ML VIAL IVP ONE (09:34)
[2022-01-07] MEDS ORDERED: Amiodarone Premix 150 MG/100 ML BAG IVPB ONE (13:16)
[2022-01-07] MEDS ORDERED: Artificial Tears SOLN 15 ML BOTTLE BOTH EYES PRN (13:21)
[2022-01-07] MEDS: FentaNYL (PF) 1,000 MCG/100 ML IV.SOLN IVC SCH ×2 (13:24→20:19)
[2022-01-07] MEDS ORDERED: Amiodarone Premix 360 MG/200 ML BAG IVC SCH (13:30)
[2022-01-07] MEDS: 0.9 % Sodium Chloride 1,000 ML IVC SCH ×2 (13:32→16:36)
[2022-01-07] MEDS ORDERED: Levalbuterol Neb 1.25 MG/3 ML ONE (13:41)
[2022-01-07] MEDS ORDERED: Levalbuterol Neb 1.25 MG/3 ML IH STA (13:42)
[2022-01-07] MEDS: Norepinephrine 4 MG/254 ML IV.SOLN IVC SCH ×3 (14:00→22:13)
[2022-01-07] MEDS ORDERED: Albumin Human 5% 12.5 GM/250 ML IV.SOLN ONE (14:27)
[2022-01-07] MEDS ORDERED: *HR* Vasopressin 20 UNIT/ML VIAL ONE (14:31)
[2022-01-07] MEDS ORDERED: *HR* Rocuronium Bromide 50 MG/5 ML VIAL ONE (14:33)
[2022-01-07] MEDS ORDERED: *HR* Midazolam HCl 5 MG/5 ML VIAL IVP ONE (14:33)
[2022-01-07] MEDS: Albumin Human 5% 12.5 GM/250 ML IV.SOLN IVC SCH ×2 (15:14→16:05)
[2022-01-07] MEDS ORDERED: Albumin Human 5% 25.0 GM/500 ML IV.SOLN ONE (16:02)
[2022-01-07 16:11] LABS: ABG Base Excess 0 mEq/L (-2 to 3); ABG HCO3 25 mEq/L (21-27); ABG Oxygen Saturation 94 % (95-98); ABG PCO2 42 mmHg (35-45); ABG PH 7.39 pH Units (7.32-7.45); ABG PO2 71 mmHg (85-104); ABG TCO2 26 mEq/L (20-26); Blood Gas Modality ASSIST CONTROL; Blood Gas VT 450 cc
[2022-01-07] MEDS ORDERED: Albumin Human 5% 12.5 GM/250 ML IV.SOLN IVC SCH (16:15)
[2022-01-07] MEDS: Chlorhexidine Rinse 15 ML MOUTHWASH MM SCH ×3 (16:36→22:19)
[2022-01-07] MEDS: Artificial Tears SOLN 15 ML BOTTLE BOTH EYES SCH ×2 (16:36→22:05)
[2022-01-07 18:11] LABS: ABG Base Excess 0 mEq/L (-2 to 3); ABG HCO3 25 mEq/L (21-27); ABG Oxygen Saturation 82 % (95-98); ABG PCO2 43 mmHg (35-45); ABG PH 7.37 pH Units (7.32-7.45); ABG PO2 47 mmHg (85-104); ABG TCO2 27 mEq/L (20-26); Blood Gas VT 400 cc
[2022-01-07] MEDS: Budesonide/Formoterol 160/4.5 1 PUFF INH IH SCH (20:25)
[2022-01-07] MEDS: *HR* HYDROmorphone PCA *PREMADE* 20 MG/1MG/ML (20mL) PCA VIAL IVC SCH (23:23)
[2022-01-08] MEDS: Artificial Tears SOLN 15 ML BOTTLE BOTH EYES SCH ×6 (00:07→20:56)
[2022-01-08] MEDS: Levalbuterol Neb 1.25 MG/3 ML IH SCH ×7 (00:12→23:16)
[2022-01-08] MEDS: 0.9 % Sodium Chloride 1,000 ML IVC SCH ×3 (00:32→20:30)
[2022-01-08] MEDS: Ampicillin/Sulbactam 3,000 MG in 0.9 % Sodium Chloride Mini Bag 100 ML IVPB SCH ×3 (00:39→14:37)
[2022-01-08] MEDS: FentaNYL (PF) 1,000 MCG/100 ML IV.SOLN IVC SCH ×3 (03:02→20:49)
[2022-01-08] MEDS: Dexmedetomidine HCl 400 MCG/100 ML MLS IVC SCH ×3 (04:09→17:10)
[2022-01-08 04:41] LABS: ABG Base Excess 1 mEq/L (-2 to 3); ABG HCO3 25 mEq/L (21-27); ABG Oxygen Saturation 100 % (95-98); ABG PCO2 37 mmHg (35-45); ABG PH 7.44 pH Units (7.32-7.45); ABG PO2 289 mmHg (85-104); ABG TCO2 26 mEq/L (20-26); Blood Gas Modality ASSIST CONTROL; Blood Gas VT 400 cc
[2022-01-08 05:13] LABS: Hematocrit 21.3 % (37.5-50.1); Mean Corpuscular Volume 108.1 fL (83.0-100.0); Red Blood Count 1.97 M/mcL (4.19-5.50); Red Cell Distribution Width 19.2 % (11.5-14.5)
[2022-01-08 05:15] LABS: Hemoglobin 6.7 g/dL (12.9-16.9); Immature Platelets 4.9 % (1.1-6.1); Mean Corpuscular HGB Conc 31.5 g/dL (31.6-35.5); Mean Platelet Volume 10.8 fL (9.4-12.4); White Blood Count 2.9 K/mcL (4.3-11.1)
[2022-01-08 05:32] LABS: BUN/Creatinine Ratio 32 (6-26); Blood Urea Nitrogen 21 mg/dL (8-23); Calcium 7.9 mg/dL (8.6-10.3); Carbon Dioxide 25 mEq/L (23-29); Chloride 111 mEq/L (98-107); Glucose 145 mg/dL (70-105); Magnesium 1.9 mg/dL (1.6-2.6); Osmolality,Calculated 302 (280-300); Potassium 3.6 mEq/L (3.5-5.1); Sodium 143 mEq/L (136-145); eGFR For African Americans > 60 (> 60); eGFR For Non-African Americans > 60 (> 60)
[2022-01-08] MEDS: Norepinephrine 4 MG/254 ML IV.SOLN IVC SCH (05:51)
[2022-01-08] MEDS: Budesonide/Formoterol 160/4.5 1 PUFF INH IH SCH ×2 (07:25→19:35)
[2022-01-08] MEDS: Chlorhexidine Rinse 15 ML MOUTHWASH MM SCH ×4 (08:11→22:33)
[2022-01-08] MEDS: Pantoprazole 40 MG VIAL IVP SCH (08:11)
[2022-01-08] MEDS: Amiodarone Premix 360 MG/200 ML BAG IVC SCH ×2 (09:39→22:28)
[2022-01-08] MEDS: Doxycycline 100 MG in 0.9 % Sodium Chloride Mini Bag 100 ML IVPB SCH ×2 (09:58→22:33)
[2022-01-08] MEDS ORDERED: 0.9 % Sodium Chloride 250 ML ONE (10:03)
[2022-01-08] MEDS: Fluconazole 200 MG/100 ML 100 MG/50 ML BAG IVPB SCH (13:15)
[2022-01-09] MEDS: Artificial Tears SOLN 15 ML BOTTLE BOTH EYES SCH ×7 (01:13→23:05)
[2022-01-09] MEDS: Piperacillin/Tazobactam 3.375 GM in 0.9 % Sodium Chloride Mini Bag 100 ML IVPB SCH ×4 (01:15→23:05)
[2022-01-09] MEDS: Levalbuterol Neb 1.25 MG/3 ML IH SCH ×6 (03:22→23:12)
[2022-01-09 04:13] LABS: Hematocrit 26.4 % (37.5-50.1)
[2022-01-09 04:15] LABS: Hemoglobin 8.4 g/dL (12.9-16.9); Immature Platelets 5.4 % (1.1-6.1); Mean Corpuscular HGB Conc 31.8 g/dL (31.6-35.5); Mean Corpuscular Hemoglobin 33.2 pg (28.0-33.3); Mean Corpuscular Volume 104.3 fL (83.0-100.0); Mean Platelet Volume 10.4 fL (9.4-12.4); Red Blood Count 2.53 M/mcL (4.19-5.50)
[2022-01-09 04:21] LABS: ABG Base Excess 0 mEq/L (-2 to 3); ABG HCO3 24 mEq/L (21-27); ABG Oxygen Saturation 100 % (95-98); ABG PCO2 35 mmHg (35-45); ABG PH 7.44 pH Units (7.32-7.45); ABG PO2 177 mmHg (85-104); ABG TCO2 25 mEq/L (20-26); Blood Gas Modality ASSIST CONTROL; Blood Gas VT 400 cc
[2022-01-09 04:29] LABS: BUN/Creatinine Ratio 38 (6-26); Blood Urea Nitrogen 20 mg/dL (8-23); Calcium 7.8 mg/dL (8.6-10.3); Carbon Dioxide 24 mEq/L (23-29); Chloride 112 mEq/L (98-107); Glucose 102 mg/dL (70-105); Magnesium 1.8 mg/dL (1.6-2.6); Osmolality,Calculated 299 (280-300); Phosphorous 2.9 mg/dL (2.7-4.5); Potassium 3.6 mEq/L (3.5-5.1); Sodium 143 mEq/L (136-145); eGFR For African Americans > 60 (> 60); eGFR For Non-African Americans > 60 (> 60)
[2022-01-09] MEDS: FentaNYL (PF) 1,000 MCG/100 ML IV.SOLN IVC SCH ×2 (06:28→16:39)
[2022-01-09] MEDS: 0.9 % Sodium Chloride 1,000 ML IVC SCH ×2 (06:32→16:39)
[2022-01-09] MEDS: Budesonide/Formoterol 160/4.5 1 PUFF INH IH SCH ×2 (07:05→20:07)
[2022-01-09] MEDS: Pantoprazole 40 MG VIAL IVP SCH (08:00)
[2022-01-09] MEDS: Chlorhexidine Rinse 15 ML MOUTHWASH MM SCH ×2 (08:00→19:50)
[2022-01-09] MEDS: Fluconazole 200 MG/100 ML 100 MG/50 ML BAG IVPB SCH (08:00)
[2022-01-09] MEDS: Doxycycline 100 MG in 0.9 % Sodium Chloride Mini Bag 100 ML IVPB SCH ×2 (10:58→22:15)
[2022-01-09] MEDS: Norepinephrine 4 MG/254 ML IV.SOLN IVC SCH ×2 (11:10→22:14)
[2022-01-09] MEDS: Dexmedetomidine HCl 400 MCG/100 ML MLS IVC SCH ×2 (11:11→22:18)
[2022-01-09] MEDS: Amiodarone Premix 360 MG/200 ML BAG IVC SCH (11:11)
[2022-01-10] MEDS: FentaNYL (PF) 1,000 MCG/100 ML IV.SOLN IVC SCH ×4 (00:07→20:28)
[2022-01-10] MEDS: Amiodarone Premix 360 MG/200 ML BAG IVC SCH ×2 (00:09→11:46)
[2022-01-10] MEDS: 0.9 % Sodium Chloride 1,000 ML IVC SCH ×3 (02:35→23:26)
[2022-01-10] MEDS: Artificial Tears SOLN 15 ML BOTTLE BOTH EYES SCH ×6 (03:09→23:52)
[2022-01-10 04:03] LABS: Hematocrit 27.4 % (37.5-50.1); Hemoglobin 8.6 g/dL (12.9-16.9); Mean Corpuscular HGB Conc 31.4 g/dL (31.6-35.5); Mean Corpuscular Hemoglobin 33.2 pg (28.0-33.3); Mean Corpuscular Volume 105.8 fL (83.0-100.0); Mean Platelet Volume 11.9 fL (9.4-12.4); Red Blood Count 2.59 M/mcL (4.19-5.50); Red Cell Distribution Width 20.8 % (11.5-14.5)
[2022-01-10 04:05] LABS: Platelet Count 62 K/mcL (140-400); White Blood Count 11.5 K/mcL (4.3-11.1)
[2022-01-10] MEDS: Levalbuterol Neb 1.25 MG/3 ML IH SCH ×6 (04:06→23:07)
[2022-01-10 04:22] LABS: BUN/Creatinine Ratio 33 (6-26); Blood Urea Nitrogen 17 mg/dL (8-23); Calcium 7.7 mg/dL (8.6-10.3); Carbon Dioxide 23 mEq/L (23-29); Chloride 111 mEq/L (98-107); Glucose 140 mg/dL (70-105); Magnesium 1.7 mg/dL (1.6-2.6); Osmolality,Calculated 296 (280-300); Phosphorous 3.3 mg/dL (2.7-4.5); Sodium 141 mEq/L (136-145); eGFR For African Americans > 60 (> 60); eGFR For Non-African Americans > 60 (> 60)
[2022-01-10 04:23] LABS: VBG Ionized Calcium 1.16 mmol/L (1.15-1.35)
[2022-01-10 04:26] LABS: ABG Base Excess -3 mEq/L (-2 to 3); ABG HCO3 23 mEq/L (21-27); ABG Oxygen Saturation 98 % (95-98); ABG PCO2 42 mmHg (35-45); ABG PH 7.34 pH Units (7.32-7.45); ABG PO2 103 mmHg (85-104); ABG TCO2 24 mEq/L (20-26); Blood Gas VT 400 cc
[2022-01-10] MEDS: Norepinephrine 4 MG/254 ML IV.SOLN IVC SCH ×2 (06:31→17:53)
[2022-01-10] MEDS: Budesonide/Formoterol 160/4.5 1 PUFF INH IH SCH ×2 (07:14→20:31)
[2022-01-10] MEDS: Pantoprazole 40 MG VIAL IVP SCH (08:09)
[2022-01-10] MEDS: Chlorhexidine Rinse 15 ML MOUTHWASH MM SCH ×2 (08:09→19:47)
[2022-01-10] MEDS: Piperacillin/Tazobactam 3.375 GM in 0.9 % Sodium Chloride Mini Bag 100 ML IVPB SCH ×3 (08:10→23:24)
[2022-01-10] MEDS: Fluconazole 200 MG/100 ML 100 MG/50 ML BAG IVPB SCH (08:11)
[2022-01-10] MEDS: Doxycycline 100 MG in 0.9 % Sodium Chloride Mini Bag 100 ML IVPB SCH ×2 (09:15→20:56)
[2022-01-11] MEDS ORDERED: Furosemide 40 MG/4 ML VIAL IVP ONE (00:27)
[2022-01-11] MEDS: Amiodarone Premix 360 MG/200 ML BAG IVC SCH ×2 (00:35→13:00)
[2022-01-11] MEDS: Norepinephrine 4 MG/254 ML IV.SOLN IVC SCH ×3 (03:03→21:14)
[2022-01-11] MEDS: FentaNYL (PF) 1,000 MCG/100 ML IV.SOLN IVC SCH ×3 (03:03→18:50)
[2022-01-11] MEDS: Artificial Tears SOLN 15 ML BOTTLE BOTH EYES SCH ×6 (03:04→23:06)
[2022-01-11 03:14] LABS: Hemoglobin 8.8 g/dL (12.9-16.9); Mean Corpuscular Hemoglobin 33.1 pg (28.0-33.3); Red Blood Count 2.66 M/mcL (4.19-5.50)
[2022-01-11 03:15] LABS: VBG Ionized Calcium 1.12 mmol/L (1.15-1.35)
[2022-01-11 03:16] LABS: Hematocrit 28.1 % (37.5-50.1); Immature Platelets 8.3 % (1.1-6.1); Mean Corpuscular HGB Conc 31.3 g/dL (31.6-35.5); Mean Corpuscular Volume 105.6 fL (83.0-100.0); Mean Platelet Volume 10.8 fL (9.4-12.4); Red Cell Distribution Width 20.4 % (11.5-14.5); White Blood Count 8.9 K/mcL (4.3-11.1)
[2022-01-11 03:33] LABS: BUN/Creatinine Ratio 29 (6-26); Blood Urea Nitrogen 16 mg/dL (8-23); Calcium 7.7 mg/dL (8.6-10.3); Carbon Dioxide 25 mEq/L (23-29); Chloride 111 mEq/L (98-107); Glucose 165 mg/dL (70-105); Magnesium 1.7 mg/dL (1.6-2.6); Osmolality,Calculated 295 (280-300); Phosphorous 2.9 mg/dL (2.7-4.5); Potassium 3.7 mEq/L (3.5-5.1); Sodium 140 mEq/L (136-145); eGFR For African Americans > 60 (> 60); eGFR For Non-African Americans > 60 (> 60)
[2022-01-11] MEDS: Levalbuterol Neb 1.25 MG/3 ML IH SCH ×6 (03:44→23:01)
[2022-01-11 04:08] LABS: ABG Base Excess -1 mEq/L (-2 to 3); ABG HCO3 24 mEq/L (21-27); ABG Oxygen Saturation 96 % (95-98); ABG PCO2 43 mmHg (35-45); ABG PH 7.36 pH Units (7.32-7.45); ABG PO2 84 mmHg (85-104); ABG TCO2 26 mEq/L (20-26); Blood Gas VT 400 cc
[2022-01-11] MEDS: Pantoprazole 40 MG VIAL IVP SCH (07:35)
[2022-01-11] MEDS: Chlorhexidine Rinse 15 ML MOUTHWASH MM SCH ×2 (07:35→21:03)
[2022-01-11] MEDS: Piperacillin/Tazobactam 3.375 GM in 0.9 % Sodium Chloride Mini Bag 100 ML IVPB SCH ×3 (07:37→23:07)
[2022-01-11] MEDS: Fluconazole 200 MG/100 ML 100 MG/50 ML BAG IVPB SCH (07:52)
[2022-01-11] MEDS: Budesonide/Formoterol 160/4.5 1 PUFF INH IH SCH ×2 (07:57→20:08)
[2022-01-11] MEDS: Doxycycline 100 MG in 0.9 % Sodium Chloride Mini Bag 100 ML IVPB SCH ×2 (09:20→21:02)
[2022-01-11] MEDS: MethylPREDNISolone 40 MG/ML VIAL IVP SCH ×3 (09:20→23:06)
[2022-01-11] MEDS: 0.9 % Sodium Chloride 1,000 ML IVC SCH ×2 (10:00→19:19)
[2022-01-11 16:37] LABS: Magnesium 1.8 mg/dL (1.6-2.6); Potassium 4.2 mEq/L (3.5-5.1)
[2022-01-12] MEDS: FentaNYL (PF) 1,000 MCG/100 ML IV.SOLN IVC SCH ×4 (03:18→23:11)
[2022-01-12] MEDS: Artificial Tears SOLN 15 ML BOTTLE BOTH EYES SCH ×6 (03:19→23:12)
[2022-01-12 03:40] LABS: Hemoglobin 8.9 g/dL (12.9-16.9); Mean Corpuscular Volume 105.2 fL (83.0-100.0)
[2022-01-12 03:42] LABS: Hematocrit 28.2 % (37.5-50.1); Immature Platelets 10.8 % (1.1-6.1); Mean Corpuscular HGB Conc 31.6 g/dL (31.6-35.5); Mean Corpuscular Hemoglobin 33.2 pg (28.0-33.3); Red Blood Count 2.68 M/mcL (4.19-5.50); Red Cell Distribution Width 19.5 % (11.5-14.5)
[2022-01-12] MEDS: Levalbuterol Neb 1.25 MG/3 ML IH SCH ×6 (03:56→23:10)
[2022-01-12 03:57] LABS: BUN/Creatinine Ratio 42 (6-26); Blood Urea Nitrogen 20 mg/dL (8-23); Calcium 7.9 mg/dL (8.6-10.3); Carbon Dioxide 27 mEq/L (23-29); Chloride 111 mEq/L (98-107); Glucose 217 mg/dL (70-105); Magnesium 1.6 mg/dL (1.6-2.6); Osmolality,Calculated 303 (280-300); Phosphorous 2.6 mg/dL (2.7-4.5); Potassium 3.7 mEq/L (3.5-5.1); Sodium 142 mEq/L (136-145); eGFR For African Americans > 60 (> 60); eGFR For Non-African Americans > 60 (> 60)
[2022-01-12 03:58] LABS: VBG Ionized Calcium 1.19 mmol/L (1.15-1.35)
[2022-01-12 04:21] LABS: ABG Base Excess 0 mEq/L (-2 to 3); ABG HCO3 25 mEq/L (21-27); ABG Oxygen Saturation 97 % (95-98); ABG PCO2 45 mmHg (35-45); ABG PH 7.36 pH Units (7.32-7.45); ABG PO2 94 mmHg (85-104); ABG TCO2 27 mEq/L (20-26); Blood Gas VT 400 cc
[2022-01-12] MEDS: 0.9 % Sodium Chloride 1,000 ML IVC SCH ×3 (05:12→23:20)
[2022-01-12] MEDS: Budesonide/Formoterol 160/4.5 1 PUFF INH IH SCH ×2 (07:39→19:53)
[2022-01-12] MEDS: Piperacillin/Tazobactam 3.375 GM in 0.9 % Sodium Chloride Mini Bag 100 ML IVPB SCH ×3 (08:13→23:12)
[2022-01-12] MEDS: Pantoprazole 40 MG VIAL IVP SCH (08:14)
[2022-01-12] MEDS: Chlorhexidine Rinse 15 ML MOUTHWASH MM SCH ×2 (08:14→19:45)
[2022-01-12] MEDS: MethylPREDNISolone 40 MG/ML VIAL IVP SCH ×3 (08:14→23:11)
[2022-01-12] MEDS: Norepinephrine 4 MG/254 ML IV.SOLN IVC SCH ×2 (08:15→15:09)
[2022-01-12] MEDS: Fluconazole 200 MG/100 ML 100 MG/50 ML BAG IVPB SCH (08:42)
[2022-01-12] MEDS: Doxycycline 100 MG in 0.9 % Sodium Chloride Mini Bag 100 ML IVPB SCH ×2 (10:07→21:28)
[2022-01-13 03:19] LABS: Hematocrit 27.3 % (37.5-50.1)
[2022-01-13 03:21] LABS: Hemoglobin 8.3 g/dL (12.9-16.9); Immature Platelets 12.6 % (1.1-6.1); Mean Corpuscular HGB Conc 30.4 g/dL (31.6-35.5); Mean Corpuscular Hemoglobin 32.5 pg (28.0-33.3); Mean Corpuscular Volume 107.1 fL (83.0-100.0); Mean Platelet Volume 12.4 fL (9.4-12.4); Red Blood Count 2.55 M/mcL (4.19-5.50); Red Cell Distribution Width 18.9 % (11.5-14.5); White Blood Count 3.5 K/mcL (4.3-11.1)
[2022-01-13 03:23] LABS: VBG Ionized Calcium 1.22 mmol/L (1.15-1.35)
[2022-01-13] MEDS: Levalbuterol Neb 1.25 MG/3 ML IH SCH ×5 (03:35→19:57)
[2022-01-13 03:47] LABS: BUN/Creatinine Ratio 45 (6-26); Blood Urea Nitrogen 23 mg/dL (8-23); Calcium 7.9 mg/dL (8.6-10.3); Carbon Dioxide 25 mEq/L (23-29); Chloride 113 mEq/L (98-107); Glucose 220 mg/dL (70-105); Magnesium 1.7 mg/dL (1.6-2.6); Osmolality,Calculated 308 (280-300); Phosphorous 2.3 mg/dL (2.7-4.5); Potassium 3.9 mEq/L (3.5-5.1); Sodium 144 mEq/L (136-145); eGFR For African Americans > 60 (> 60); eGFR For Non-African Americans > 60 (> 60)
[2022-01-13 03:55] LABS: ABG Base Excess -1 mEq/L (-2 to 3); ABG HCO3 26 mEq/L (21-27); ABG Oxygen Saturation 98 % (95-98); ABG PCO2 50 mmHg (35-45); ABG PH 7.32 pH Units (7.32-7.45); ABG PO2 111 mmHg (85-104); ABG TCO2 27 mEq/L (20-26); Blood Gas VT 400 cc
[2022-01-13] MEDS: Artificial Tears SOLN 15 ML BOTTLE BOTH EYES SCH ×6 (04:31→23:59)
[2022-01-13] MEDS: FentaNYL (PF) 1,000 MCG/100 ML IV.SOLN IVC SCH ×3 (06:27→21:47)
[2022-01-13] MEDS: Budesonide/Formoterol 160/4.5 1 PUFF INH IH SCH ×2 (07:52→19:57)
[2022-01-13] MEDS: MethylPREDNISolone 40 MG/ML VIAL IVP SCH ×2 (07:58→16:11)
[2022-01-13] MEDS: Chlorhexidine Rinse 15 ML MOUTHWASH MM SCH ×2 (07:59→19:46)
[2022-01-13] MEDS: Pantoprazole 40 MG VIAL IVP SCH (07:59)
[2022-01-13] MEDS: Piperacillin/Tazobactam 3.375 GM in 0.9 % Sodium Chloride Mini Bag 100 ML IVPB SCH ×3 (07:59→23:59)
[2022-01-13] MEDS: Norepinephrine 4 MG/254 ML IV.SOLN IVC SCH ×2 (08:00→20:35)
[2022-01-13] MEDS: Fluconazole 200 MG/100 ML 100 MG/50 ML BAG IVPB SCH (08:47)
[2022-01-13] MEDS ORDERED: Dextrose 4 GM Chewable Tablets PO PRN ×2 (08:53)
[2022-01-13] MEDS ORDERED: D5% in Water 1,000 ML IVC PRN (08:53)
[2022-01-13] MEDS ORDERED: *HR* Dextrose 50 % in Water (Syg) 50 ML SYRINGE IVP PRN (08:53)
[2022-01-13] MEDS ORDERED: Furosemide 20 MG/2 ML VIAL IVP ONE (08:55)
[2022-01-13] MEDS: 0.9 % Sodium Chloride 1,000 ML IVC SCH ×2 (10:04→21:48)
[2022-01-13] MEDS ORDERED: Amiodarone Premix 360 MG/200 ML BAG IVC SCH (12:00)
[2022-01-13] MEDS: Insulin LISPRO 300 UNITS/3 ML VIAL SUBQ SCH ×2 (12:50→17:21)
[2022-01-14] MEDS: Levalbuterol Neb 1.25 MG/3 ML IH SCH ×7 (00:24→23:24)
[2022-01-14] MEDS: Artificial Tears SOLN 15 ML BOTTLE BOTH EYES SCH ×6 (03:14→23:31)
[2022-01-14 03:24] LABS: Red Cell Distribution Width 18.9 % (11.5-14.5)
[2022-01-14 03:26] LABS: Hematocrit 27.4 % (37.5-50.1); Hemoglobin 8.5 g/dL (12.9-16.9); Immature Platelets 13.4 % (1.1-6.1); Mean Corpuscular Hemoglobin 33.3 pg (28.0-33.3); Mean Corpuscular Volume 107.5 fL (83.0-100.0); Mean Platelet Volume 13.8 fL (9.4-12.4); Red Blood Count 2.55 M/mcL (4.19-5.50); White Blood Count 9.2 K/mcL (4.3-11.1)
[2022-01-14 03:43] LABS: BUN/Creatinine Ratio 54 (6-26); Blood Urea Nitrogen 29 mg/dL (8-23); Calcium 7.5 mg/dL (8.6-10.3); Carbon Dioxide 28 mEq/L (23-29); Chloride 113 mEq/L (98-107); Glucose 276 mg/dL (70-105); Magnesium 1.9 mg/dL (1.6-2.6); Osmolality,Calculated 316 (280-300); Phosphorous 2.2 mg/dL (2.7-4.5); Potassium 3.7 mEq/L (3.5-5.1); Sodium 145 mEq/L (136-145); eGFR For African Americans > 60 (> 60); eGFR For Non-African Americans > 60 (> 60)
[2022-01-14 04:54] LABS: ABG Base Excess 2 mEq/L (-2 to 3); ABG HCO3 28 mEq/L (21-27); ABG Oxygen Saturation 98 % (95-98); ABG PCO2 48 mmHg (35-45); ABG PH 7.37 pH Units (7.32-7.45); ABG PO2 107 mmHg (85-104); ABG TCO2 29 mEq/L (20-26); Blood Gas Modality AF; Blood Gas VT 450 cc
[2022-01-14] MEDS: FentaNYL (PF) 1,000 MCG/100 ML IV.SOLN IVC SCH ×2 (05:23→14:02)
[2022-01-14] MEDS: Insulin LISPRO 300 UNITS/3 ML VIAL SUBQ SCH ×5 (05:26→23:31)
[2022-01-14] MEDS: Norepinephrine 4 MG/254 ML IV.SOLN IVC SCH ×2 (06:35→10:59)
[2022-01-14] MEDS: Budesonide/Formoterol 160/4.5 1 PUFF INH IH SCH ×2 (07:30→20:19)
[2022-01-14] MEDS: MethylPREDNISolone 40 MG/ML VIAL IVP SCH ×4 (07:32→23:30)
[2022-01-14] MEDS: Piperacillin/Tazobactam 3.375 GM in 0.9 % Sodium Chloride Mini Bag 100 ML IVPB SCH (07:32)
[2022-01-14] MEDS: Pantoprazole 40 MG VIAL IVP SCH (07:33)
[2022-01-14] MEDS: Chlorhexidine Rinse 15 ML MOUTHWASH MM SCH ×2 (07:33→20:35)
[2022-01-14] MEDS: *HR* Amiodarone 200 MG TABLET GTUBE SCH (09:08)
[2022-01-14] MEDS: Fluconazole 100 MG/50 ML 100 MG/50 ML BAG IVPB SCH (10:15)
[2022-01-14] MEDS: 0.9 % Sodium Chloride 1,000 ML IVC SCH ×2 (10:32→20:35)
[2022-01-14] MEDS: MetroNIDAZOLE 500 MG/100 ML 500 MG/100 ML BAG IVPB SCH ×3 (12:09→23:30)
[2022-01-14] MEDS: Cefepime HCl 2,000 MG in 0.9 % Sodium Chloride 20 ML IVP SCH ×2 (15:51→23:30)
[2022-01-14] MEDS ORDERED: Amiodarone Premix 360 MG/200 ML BAG IVC ONE (18:39)
[2022-01-14] MEDS: Amiodarone Premix 360 MG/200 ML BAG IVC SCH (18:40)
[2022-01-14] MEDS ORDERED: 0.9 % Sodium Chloride 500 ML ONE (19:48)
[2022-01-15] MEDS: FentaNYL (PF) 1,000 MCG/100 ML IV.SOLN IVC SCH ×3 (00:29→23:38)
[2022-01-15] MEDS: Artificial Tears SOLN 15 ML BOTTLE BOTH EYES SCH ×6 (03:26→23:36)
[2022-01-15 03:55] LABS: Red Blood Count 2.47 M/mcL (4.19-5.50)
[2022-01-15 03:57] LABS: Hematocrit 26.7 % (37.5-50.1); Hemoglobin 8.3 g/dL (12.9-16.9); Immature Platelets 17.5 % (1.1-6.1); Mean Corpuscular HGB Conc 31.1 g/dL (31.6-35.5); Mean Corpuscular Hemoglobin 33.6 pg (28.0-33.3); Mean Corpuscular Volume 108.1 fL (83.0-100.0); Red Cell Distribution Width 18.9 % (11.5-14.5); White Blood Count 12.7 K/mcL (4.3-11.1)
[2022-01-15] MEDS: Levalbuterol Neb 1.25 MG/3 ML IH SCH ×6 (04:00→23:02)
[2022-01-15 04:02] LABS: Platelet Count 21 K/mcL (140-400)
[2022-01-15 04:11] LABS: BUN/Creatinine Ratio 53 (6-26); Blood Urea Nitrogen 31 mg/dL (8-23); Calcium 7.4 mg/dL (8.6-10.3); Carbon Dioxide 29 mEq/L (23-29); Chloride 112 mEq/L (98-107); Glucose 244 mg/dL (70-105); Osmolality,Calculated 315 (280-300); Phosphorous 2.2 mg/dL (2.7-4.5); Potassium 4.5 mEq/L (3.5-5.1); Sodium 145 mEq/L (136-145); eGFR For African Americans > 60 (> 60); eGFR For Non-African Americans > 60 (> 60)
[2022-01-15 04:27] LABS: ABG Base Excess 3 mEq/L (-2 to 3); ABG HCO3 28 mEq/L (21-27); ABG Oxygen Saturation 97 % (95-98); ABG PCO2 44 mmHg (35-45); ABG PH 7.41 pH Units (7.32-7.45); ABG PO2 90 mmHg (85-104); ABG TCO2 29 mEq/L (20-26); Blood Gas Modality AF; Blood Gas VT 450 cc
[2022-01-15] MEDS: Amiodarone Premix 360 MG/200 ML BAG IVC SCH ×2 (05:20→16:11)
[2022-01-15] MEDS: MetroNIDAZOLE 500 MG/100 ML 500 MG/100 ML BAG IVPB SCH ×4 (05:20→23:36)
[2022-01-15] MEDS: Insulin LISPRO 300 UNITS/3 ML VIAL SUBQ SCH ×4 (05:24→23:37)
[2022-01-15] MEDS: Norepinephrine 4 MG/254 ML IV.SOLN IVC SCH ×3 (06:49→12:10)
[2022-01-15] MEDS: MethylPREDNISolone 40 MG/ML VIAL IVP SCH ×3 (07:01→23:35)
[2022-01-15] MEDS: Cefepime HCl 2,000 MG in 0.9 % Sodium Chloride 20 ML IVP SCH ×3 (07:01→23:35)
[2022-01-15] MEDS: Chlorhexidine Rinse 15 ML MOUTHWASH MM SCH ×2 (07:01→19:29)
[2022-01-15] MEDS: Pantoprazole 40 MG VIAL IVP SCH (07:02)
[2022-01-15] MEDS: Budesonide/Formoterol 160/4.5 1 PUFF INH IH SCH ×2 (07:11→20:14)
[2022-01-15] MEDS ORDERED: Furosemide 40 MG/4 ML VIAL IVP ONE (07:43)
[2022-01-15] MEDS: *HR* Amiodarone 200 MG TABLET GTUBE SCH (08:00)
[2022-01-15] MEDS ORDERED: Amiodarone Premix 150 MG/100 ML BAG IVPB ONE (09:01)
[2022-01-15] MEDS: Fluconazole 100 MG/50 ML 100 MG/50 ML BAG IVPB SCH (09:07)
[2022-01-15] MEDS: *HR* LORazepam 2 MG/ML VIAL IVP PRN (11:06)
[2022-01-15] MEDS: Metoclopramide 10 MG/2 ML VIAL IVP SCH ×3 (11:07→23:36)
[2022-01-15] MEDS: Albumin Human 5% 12.5 GM/250 ML IV.SOLN IVC SCH ×2 (12:15→13:45)
[2022-01-15] MEDS: Phenylephrine 100 MG in 0.9 % Sodium Chloride 250 ML IVC SCH ×2 (12:21→20:34)
[2022-01-15] MEDS ORDERED: Albumin Human 5% 25.0 GM/500 ML IV.SOLN ONE (12:53)
[2022-01-16] MEDS: Artificial Tears SOLN 15 ML BOTTLE BOTH EYES SCH ×6 (03:05→23:13)
[2022-01-16] MEDS: Levalbuterol Neb 1.25 MG/3 ML IH SCH ×6 (03:29→23:17)
[2022-01-16 04:12] LABS: ABG Base Excess 3 mEq/L (-2 to 3); ABG HCO3 30 mEq/L (21-27); ABG Oxygen Saturation 97 % (95-98); ABG PCO2 56 mmHg (35-45); ABG PH 7.34 pH Units (7.32-7.45); ABG PO2 99 mmHg (85-104); ABG TCO2 32 mEq/L (20-26); Blood Gas Modality ASSIST CONTROL; Blood Gas VT 450 cc
[2022-01-16] MEDS: Phenylephrine 100 MG in 0.9 % Sodium Chloride 250 ML IVC SCH ×3 (04:12→19:37)
[2022-01-16 04:15] LABS: Hematocrit 27.4 % (37.5-50.1); Hemoglobin 8.2 g/dL (12.9-16.9); Immature Platelets 25.6 % (1.1-6.1); Mean Corpuscular HGB Conc 29.9 g/dL (31.6-35.5); Mean Corpuscular Hemoglobin 32.4 pg (28.0-33.3); Mean Corpuscular Volume 108.3 fL (83.0-100.0); Red Blood Count 2.53 M/mcL (4.19-5.50); White Blood Count 12.7 K/mcL (4.3-11.1)
[2022-01-16 04:27] LABS: BUN/Creatinine Ratio 56 (6-26); Blood Urea Nitrogen 40 mg/dL (8-23); Calcium 7.5 mg/dL (8.6-10.3); Carbon Dioxide 30 mEq/L (23-29); Chloride 112 mEq/L (98-107); Glucose 194 mg/dL (70-105); Magnesium 1.8 mg/dL (1.6-2.6); Osmolality,Calculated 317 (280-300); Phosphorous 2.6 mg/dL (2.7-4.5); Potassium 4.5 mEq/L (3.5-5.1); Sodium 146 mEq/L (136-145); eGFR For African Americans > 60 (> 60); eGFR For Non-African Americans > 60 (> 60)
[2022-01-16 04:28] LABS: Platelet Count 14 K/mcL (140-400)
[2022-01-16] MEDS ORDERED: 0.9 % Sodium Chloride 250 ML ONE (04:54)
[2022-01-16] MEDS: MetroNIDAZOLE 500 MG/100 ML 500 MG/100 ML BAG IVPB SCH ×4 (05:38→23:11)
[2022-01-16] MEDS: Metoclopramide 10 MG/2 ML VIAL IVP SCH ×4 (05:38→23:13)
[2022-01-16] MEDS: Insulin LISPRO 300 UNITS/3 ML VIAL SUBQ SCH ×4 (05:39→23:21)
[2022-01-16] MEDS: Chlorhexidine Rinse 15 ML MOUTHWASH MM SCH ×2 (07:08→21:50)
[2022-01-16] MEDS: MethylPREDNISolone 40 MG/ML VIAL IVP SCH ×3 (07:08→23:12)
[2022-01-16] MEDS: Cefepime HCl 2,000 MG in 0.9 % Sodium Chloride 20 ML IVP SCH ×3 (07:08→23:13)
[2022-01-16] MEDS: Pantoprazole 40 MG VIAL IVP SCH (07:08)
[2022-01-16] MEDS: Budesonide/Formoterol 160/4.5 1 PUFF INH IH SCH ×2 (07:10→20:04)
[2022-01-16] MEDS: *HR* LORazepam 2 MG/ML VIAL IVP PRN (07:30)
[2022-01-16] MEDS: Amiodarone Premix 360 MG/200 ML BAG IVC SCH ×2 (09:38→19:38)
[2022-01-16] MEDS: Fluconazole 100 MG/50 ML 100 MG/50 ML BAG IVPB SCH (09:46)
[2022-01-16] MEDS: Norepinephrine 4 MG/254 ML IV.SOLN IVC SCH ×3 (09:51→21:50)
[2022-01-16] MEDS ORDERED: 0.9 % Sodium Chloride 1,000 ML ONE (10:31)
[2022-01-16] MEDS: FentaNYL (PF) 1,000 MCG/100 ML IV.SOLN IVC SCH (17:12)
[2022-01-16] MEDS ORDERED: Insulin DETEMIR 100 UNIT/ML X5UNITS SUBQ SCH (21:00)
[2022-01-17] MEDS: Phenylephrine 100 MG in 0.9 % Sodium Chloride 250 ML IVC SCH ×3 (01:43→15:02)
[2022-01-17] MEDS: Levalbuterol Neb 1.25 MG/3 ML IH SCH ×4 (03:27→15:35)
[2022-01-17] MEDS: Artificial Tears SOLN 15 ML BOTTLE BOTH EYES SCH ×4 (03:31→16:15)
[2022-01-17 04:15] LABS: Mean Corpuscular HGB Conc 29.4 g/dL (31.6-35.5)
[2022-01-17 04:15] LABS: ABG Base Excess -1 mEq/L (-2 to 3); ABG HCO3 28 mEq/L (21-27); ABG Oxygen Saturation 92 % (95-98); ABG PCO2 67 mmHg (35-45); ABG PH 7.22 pH Units (7.32-7.45); ABG PO2 76 mmHg (85-104); ABG TCO2 30 mEq/L (20-26); Blood Gas VT 400 cc
[2022-01-17 04:18] LABS: Basophils % 0.1 %; Hematocrit 29.3 % (37.5-50.1); Hemoglobin 8.6 g/dL (12.9-16.9); Immature Granulocytes % 29.6 % (0-4); Immature Platelets 24.9 % (1.1-6.1); Lymphocytes # 0.4 K/mcL (0.6-4.6); Lymphocytes % 1.9 %; Mean Corpuscular Hemoglobin 33.1 pg (28.0-33.3); Mean Corpuscular Volume 112.7 fL (83.0-100.0); Monocytes # 1.6 K/mcL (0.0-1.3); Monocytes % 7.8 %; Neutrophils # 12.2 K/mcL (1.6-8.9); Nucleated Red Blood Cells 0.8 /100 WBC (0); Red Cell Distribution Width 18.9 % (11.5-14.5); Segmented Neutrophils % 60.6 %; White Blood Count 20.2 K/mcL (4.3-11.1)
[2022-01-17 04:43] LABS: BUN/Creatinine Ratio 52 (6-26); Blood Urea Nitrogen 58 mg/dL (8-23); Calcium 7.2 mg/dL (8.6-10.3); Carbon Dioxide 25 mEq/L (23-29); Chloride 114 mEq/L (98-107); Glucose 185 mg/dL (70-105); Osmolality,Calculated 321 (280-300); Potassium 5.4 mEq/L (3.5-5.1); Sodium 145 mEq/L (136-145); eGFR For African Americans > 60 (> 60); eGFR For Non-African Americans > 60 (> 60)
[2022-01-17 04:47] LABS: Platelet Count 14 K/mcL (140-400)
[2022-01-17 04:48] LABS: Basophilic Stippling 1+ (Not Present); Platelet Estimate Marked Decrease (Normal); Polychromasia 1+ (Not Present)
[2022-01-17] MEDS: MetroNIDAZOLE 500 MG/100 ML 500 MG/100 ML BAG IVPB SCH ×3 (04:53→18:21)
[2022-01-17] MEDS: Metoclopramide 10 MG/2 ML VIAL IVP SCH ×3 (04:54→18:21)
[2022-01-17] MEDS: Insulin LISPRO 300 UNITS/3 ML VIAL SUBQ SCH ×3 (04:55→18:21)
[2022-01-17] MEDS ORDERED: Ringers Solution, Lactated 1,000 ML ONE (05:33)
[2022-01-17] MEDS ORDERED: 0.9 % Sodium Chloride 250 ML ONE ×2 (05:34→09:14)
[2022-01-17] MEDS ORDERED: Ringers Solution, Lactated 1,000 ML IVC ONE (05:48)
[2022-01-17] MEDS: Amiodarone Premix 360 MG/200 ML BAG IVC SCH (05:54)
[2022-01-17] MEDS: FentaNYL (PF) 1,000 MCG/100 ML IV.SOLN IVC SCH (06:57)
[2022-01-17] MEDS: Norepinephrine 4 MG/254 ML IV.SOLN IVC SCH ×2 (07:23→07:53)
[2022-01-17] MEDS: Budesonide/Formoterol 160/4.5 1 PUFF INH IH SCH (07:44)
[2022-01-17] MEDS: MethylPREDNISolone 40 MG/ML VIAL IVP SCH ×2 (08:52→16:16)
[2022-01-17] MEDS: Cefepime HCl 2,000 MG in 0.9 % Sodium Chloride 20 ML IVP SCH ×2 (08:52→16:16)
[2022-01-17] MEDS: Pantoprazole 40 MG VIAL IVP SCH (08:52)
[2022-01-17] MEDS: Fluconazole 100 MG/50 ML 100 MG/50 ML BAG IVPB SCH (08:53)
[2022-01-17] MEDS: Chlorhexidine Rinse 15 ML MOUTHWASH MM SCH (08:53)
[2022-01-17 12:10] VITALS: TEMP 97.5
[2022-01-17 14:08] VITALS: BP 80/68; PULSE 52; O2SAT 93
[2022-01-17] MEDS ORDERED: Glycopyrrolate 0.2 MG/ML VIAL IVP PRN (15:02)
[2022-01-17] MEDS: *HR* LORazepam 2 MG/ML VIAL IVP PRN ×2 (15:31→15:55)
[2022-01-17] MEDS: *HR* FentaNYL (PF) 100 MCG/2 ML VIAL IVP PRN ×2 (15:31→15:56)
[2022-01-17] MEDS ORDERED: Atropine 1% Opth Drops 100 DROP/5 ML BOTTLE SL PRN (15:38)
[2022-01-17] MEDS ORDERED: Scopolamine Patch 1.5 MG PATCH.TD72 TD SCH (15:45)
[2022-01-17] MEDS ORDERED: Atropine Sulfate 1% 40 DROP/2 ML BOTTLE SL PRN (16:00)
[2022-01-17] MEDS ORDERED: Insulin DETEMIR 100 UNIT/ML X5UNITS SUBQ SCH (21:00)
== END 2022-01-17 16:47 | disposition expired | DRG 326 ==
LOC: SAMDAY 06:05 → ICNU 13:32
PROVIDERS: ADMIT Thoracic Surgery (Cardiothoracic Vascular Surgery); ATTEND Thoracic Surgery (Cardiothoracic Vascular Surgery)